=== PATIENT | female | born 1995 | race Caucasian/White ===

== ENCOUNTER 2018-08-01 00:46 | Emergency (ER) | payer MEDICAID ==
[~2018-08-01] VITALS: Ht 175.3 cm; Wt 59.0 kg
--- NOTE | 2018-08-01 01:15 | NUR ---
BIBS FOR C/O PAIN AND BURNING UPON URINATION SINCE TUESDAY. - FEVER. - N/V. - HEMATURIA, - ABD OR FLANK PAIN.
[2018-08-01 01:44] LABS: APPEARANCE,URINE Cloudy (CLEAR); BILIRUBIN,URINE Negative (NEGATIVE); BLOOD, URINE Small Ery/uL (NEGATIVE); COLOR,URINE Yellow (YELLOW); KETONES,URINE Negative (NEGATIVE); LEUKOCYTE ESTERASE ,URINE Moderate (NEGATIVE); NITRITE, URINE Negative (NEGATIVE); PH,URINE 5.5 (5.0-8.0); PROTEIN,URINE Trace mg/dl (NEGATIVE); UGLUCOSE Negative (NEGATIVE); UROBILINOGEN,URINE 0.2 EU/dL (0.2)
[2018-08-01 02:25] LABS: BACTERIA,URINE Few /HPF (None Seen); SQUAMOUS EPITHELIAL CELL,UR Few /HPF (None Seen); WBC,URINE 51-80 /HPF (0-3)
[2018-08-01] MEDS ORDERED: PHENAZOPYRIDINE HCL 200 MG TABLET ONE (03:27)
[2018-08-01] MEDS ORDERED: NITROFURANTOIN/NITROFURAN MAC 100 MG CAPSULE ONE (03:27)
[2018-08-01] MEDS ORDERED: NITROFURANTOIN/NITROFURAN MAC 100 MG CAPSULE PO ONE (03:30)
[2018-08-01] MEDS ORDERED: PHENAZOPYRIDINE HCL 200 MG TABLET PO ONE (03:30)
--- NOTE | 2018-08-01 03:44 | NUR ---
Patient discharged to home in stable condition. RX & Written and verbal after care instructions given. Patient verbalizes understanding of instruction.
[2018-08-01 03:46] VITALS: BP 119/74
== END 2018-08-01 03:46 | disposition home or self-care (01) ==
LOC: ER 00:53
DX: N30.90 Cystitis, unspecified without hematuria (principal)
CPT/HCPCS: 81000-TC; 87086-TC; 87186-TC

== ENCOUNTER 2018-08-02 14:44 | Emergency (ER) | payer MEDICAID ==
[~2018-08-02] VITALS: Ht 175.3 cm; Wt 59.0 kg
[2018-08-02 14:53] VITALS: BP 109/73
--- NOTE | 2018-08-02 15:10 | NUR ---
URINE SPECIMEN COLLECTED AND SENT TO LAB.
--- NOTE | 2018-08-02 15:21 | NUR ---
DR. CORTEZ AT BEDSIDE FOR EVAL.
[2018-08-02] MEDS ORDERED: VALACYCLOVIR HCL 500 MG TABLET ONE (15:30)
[2018-08-02] MEDS ORDERED: HYDROCODONE/APAP 5/325MG 1 EACH TABLET PO ONE (15:30)
[2018-08-02] MEDS ORDERED: VALACYCLOVIR HCL 500 MG TABLET PO ONE (15:30)
[2018-08-02] MEDS ORDERED: HYDROCODONE/APAP 5/325MG 1 EACH TABLET ONE (15:30)
--- NOTE | 2018-08-02 16:01 | NUR ---
Patient discharged to home in stable condition. Written and verbal after care instructions given. Patient verbalizes understanding of instruction.
== END 2018-08-02 16:04 | disposition home or self-care (01) ==
LOC: ER 14:44
DX: B00.89 Other herpesviral infection (principal); Z60.2 Problems related to living alone
CPT/HCPCS: 36415; 84703-TC